=== PATIENT | female | born 1970 | race Caucasian/White ===

== ENCOUNTER 2021-02-17 05:41 | Emergency (ER) | payer BC ==
[~2021-02-17] VITALS: Ht 160 cm; Wt 63.5 kg
[~2021-02-17 05:41] MED LIST: AMOX500 PO; Cyclobenzaprine5 MG PO; HYDR1TAB94 PO; IBUP800 PO; Norco 5-325 Ta1 EACH PO; Percocet 10-321 EACH PO; TRAM50 PO
[2021-02-17] MEDS ORDERED: CYCL10 (06:09)
[2021-02-17] MEDS ORDERED: PAROXETINE CR25 MG (06:09)
== END 2021-02-17 07:43 | disposition home or self-care (01) ==
LOC: ER 05:41
DX: S29.9XXA Unspecified injury of thorax, initial encounter (principal); Z79.899 Other long term (current) drug therapy; W01.0XXA Fall on same level from slipping, tripping and stumbling without subsequent striking against object, initial encounter
CPT/HCPCS: 71101; 96372; 99283-25; A9270; J1170